=== PATIENT | male | born 1960 | race Caucasian/White ===

== ENCOUNTER 2018-04-22 07:16 | Emergency (ER) | payer SELFPAY ==
[2018-04-22] MEDS ORDERED: HYDROmorphone 0.5 MG/0.5 ML Syringe IVPUSH ONE (07:53)
[2018-04-22 08:29] LABS: CHLORIDE,CL 99 mmol/L (101-111); SODIUM,NA 135 mmol/L (135-145)
--- NOTE | 2018-04-22 09:21 | EDM.PDOC ---
ED HPI GENERAL MEDICAL PROBLEM - General Chief Complaint: Back Pain or Injury Stated Complaint: [id number] FELL OFF LADDER WED Time Seen by Provider: 04/22/18 07:25 Source of Information: Reports: Patient History Limitations: Reports: No Limitations - History of Present Illness INITIAL COMMENTS - FREE TEXT/NARRATIVE: This 58 yo male patient reports to the ED with lower back and hip pain. The patient reports that he fell off a ladder from 10-15 feet. When he landed on the ground, he first landed on his feet, but fell back on the ladder. The patient reports that he had his tool belt on and a drill in the back of the belt at the time. The patient reports he has been attempting to control his symptoms with heat, ice and Aleve, but has not been able to improve his symptoms. 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 [No Known Home Meds] 04/22/18 [History] Past Medical History - Past Health History Medical/Surgical History: Denies Medical/Surgical History Social & Family History - Tobacco Use Smoking Status *Q: Current Every Day Smoker Years of Tobacco use: 20 Packs/Tins Daily: 1 ED ROS GENERAL - Review of Systems Review Of Systems: ROS reveals no pertinent complaints other than HPI. ED EXAM,LOWER BACK PAIN/INJURY - Physical Exam Exam: See Below Exam Limited By: No Limitations General Appearance: Alert, WD/WN, Moderate Distress Eye Exam: Bilateral Eye: EOMI, Normal Inspection, PERRL Ears: Normal External Exam, Normal Canal, Hearing Grossly Normal, Normal TMs Nose: Normal Inspection, Normal Mucosa, No Blood Throat/Mouth: Normal Inspection, Normal Lips, Normal Teeth, Normal Gums, Normal Oropharynx, Normal Voice, No Airway Compromise Head: Atraumatic, Normocephalic Neck: Normal Inspection, Supple, Non-Tender, Full Range of Motion Respiratory/Chest: No Respiratory Distress, Lungs Clear, Normal Breath Sounds, No Accessory Muscle Use, Chest Non-Tender Cardiovascular: Normal Peripheral Pulses, Regular Rate, Rhythm, No Edema, No Gallop, No JVD, No Murmur, No Rub GI/Abdominal: Normal Bowel Sounds, Soft, Non-Tender, No Organomegaly, No Distention, No Abnormal Bruit, No Mass (Male) Exam: Deferred Rectal (Males) Exam: Deferred Back Exam: Muscle Spasm, Paraspinal Tenderness, Vertebral Tenderness Extremities: Normal Inspection, Normal Range of Motion, Non-Tender, No Pedal Edema, Normal Capillary Refill Neurological: Alert, Normal Mood/Affect, Normal Dorsiflexion, CN II-XII Intact, Normal Plantar Flexion, Normal Gait, Normal Reflexes, No Motor/Sensory Deficits , Oriented x 3 Psychiatric: Normal Affect, Normal Mood Skin Exam: Warm, Dry, Intact, Normal Color, No Rash Lymphatic: No Adenopathy Course - Vital Signs Last Recorded V/S: Last Vital Signs Temp 36.2 C 04/22/18 07:18 Pulse 81 04/22/18 07:18 Resp 18 04/22/18 07:18 BP 174/95 H 04/22/18 07:18 Pulse Ox 98 04/22/18 07:18 - Orders/Labs/Meds Orders: Active Orders 24 hr Category Date Time Status Lumbar Spine wo Cont [CT] Urgent Exams 04/22/18 07:54 Ordered Pelvis wo Cont [CT] Urgent Exams 04/22/18 07:54 Ordered Labs: Laboratory Tests 04/22/18 04/22/18 Range/Units 08:02 08:02 WBC 10.4 H (5.0-10.0) 10^3/uL RBC 5.09 (4.6-6.2) 10^6/uL Hgb 16.6 (14.0-18.0) g/dL Hct 46.9 (40.0-54.0) % MCV 92.1 (80-100) fL MCH 32.6 (27.0-34.0) pg MCHC 35.4 H (33.0-35.0) g/dL Plt Count 247 (150-450) 10^3/uL Neut % (Auto) 66.7 (42.2-75.2) % Lymph % (Auto) 24.9 (20.5-50.1) % Hopkins % (Auto) 5.7 (2-8) % Eos % (Auto) 1.9 (1.0-3.0) % Baso % (Auto) 0.8 (0.0-1.0) % Sodium 135 (135-145) mmol/L Potassium 4.0 (3.6-5.0) mmol/L Chloride 99 L (101-111) mmol/L Carbon Dioxide 28.0 (21.0-31.0) mmol/L Anion Gap 12.0 BUN 8 (7-18) mg/dL Creatinine 0.9 (0.6-1.3) mg/dL Est Cr Clr Drug Dosing 87.88 mL/min Estimated GFR (MDRD) > 60 BUN/Creatinine Ratio 8.88 Glucose 115 H (74-105) mg/dL Calcium 8.4 (8.4-10.2) mg/dl Total Bilirubin 0.6 (0.2-1.0) mg/dL AST 23 (10-42) IU/L ALT 17 (10-60) IU/L Alkaline Phosphatase 87 (42-121) IU/L Total Protein 6.9 (6.7-8.2) g/dl Albumin 4.1 (3.2-5.5) g/dl Globulin 2.8 Albumin/Globulin Ratio 1.46 Meds: Medications Discontinued Medications Generic Name Dose Route Start Last Admin Trade Name Adriaq PRN Reason Stop Dose Admin Hydromorphone HCl 0.5 mg 04/22/18 07:53 04/22/18 08:00 Dilaudid IVPUSH 04/22/18 07:54 0.5 mg ONETIME ONE Administration Departure - Departure Time of Disposition: 09:18 Disposition: Home, Self-Care 01 Condition: Fair Clinical Impression: Low back pain at multiple sites - Discharge Information *PRESCRIPTION DRUG MONITORING PROGRAM REVIEWED*: Yes *COPY OF PRESCRIPTION DRUG MONITORING REPORT IN PATIENT NICHOLE: No Instructions: Back Pain, Adult, [id number] Forms: ED Department Discharge Care Plan Goals: The patient was advised of the examination, lab and CT results during the visit. The patient was given an IV dose of Dilaudid while in the ED. The patient was discharged with a script for Toradol (10 mg) #20 to take 1 by mouth every 6 hours, Flexeril (10 mg) #20 to take 1 by mouth at bedtime as needed and Runge (10 /325) #20 to take 1 by mouth every 6 hours as needed for pain. If the patient has any additional symptoms or concerns, the patient should follow-up with his primary care facility or return to the emergency department. - My Orders Last 24 Hours: My Active Orders 04/22/18 07:54 Lumbar Spine wo Cont [CT] Urgent Pelvis wo Cont [CT] Urgent - Assessment/Plan Last 24 Hours: My Active Orders 04/22/18 07:54 Lumbar Spine wo Cont [CT] Urgent Pelvis wo Cont [CT] Urgent
--- NOTE | 2018-04-22 10:40 | CT ---
CLINICAL HISTORY: 58-year-old male injured 15 foot fall off of ladder (5 days ago) when he landed on his feet but fell backward onto "drill". SCAN TECHNIQUE: Volume acquisition of data from an emergency unenhanced CT scan of the lumbosacral sp ine obtained with the patient was lying supine on the Siemens multislice scanner [place], [place]. All data archived in the PACS system for storage, reformatting axial/sag ittal/coronal planes and study. No old films immediately available for comparison. INTERPRETATION: 1. Relative decreased vertical height (compression) L1 vertebral body with hypertrophic marginal spur , i.e., fracture but the age of this compression fracture is indeterminate. 2. Hypertrophic marginal spondylosis at nearly all other levels of the lumbar spine. 3. No sign of pathologic skeletal lesion, other fracture or spondylolisthesis lumbar spine. 4. No sacral fracture. Symmetric spacing normal-appearing SI joints. 5. Calcifications outlining normal caliber aortoiliac vessels, i.e., no aneurysm or dissection. Symme tric normal silhouettes psoas. CONCLUSION: L1 compression fracture (age indeterminate). Hypertrophic spondylosis involving the entire lumbar spine. No sign of other lumbosacral fracture or spondylolisthesis.
--- NOTE | 2018-04-22 10:42 | CT ---
CLINICAL HISTORY: 58-year-old male with low back pain associated with fall (5 days ago) 15 feet off o f ladder, landing on his feet but then falling over backwards. "Indeterminate abnormality L1 vertebra l body and generalized spondylosis" CT scan lumbar spine. SCAN TECHNIQUE: Volume acquisition of data from an emergency unenhanced CT scan of the lumbosacral ju ncture, pelvis and both hips obtained while the patient was lying supine on the Siemens multislice [place], [place]. All data archived in the PACS system for [employer], reformatting axial/sagittal/coronal planes and study. INTERPRETATION: 1. Atheromatous calcifications normal caliber distal abdominal aorta and major common iliac artery br anches. 2. Symmetric normal iliopsoas musculature and no fractures bony pelvis or either hip. No hip dislocat ion. 3. Hypertrophic marginal spondylosis and facet sclerosis from the lumbosacral juncture. No abnormal d isc space narrowing. 4. Symmetric spacing normal-appearing SI and hip joints. Pubic symphysis intact. 5. Symmetrically distended normal appearing urinary bladder. No pelvic hematomas. 6. No foreign bodies. CONCLUSION: No pelvic fractures.
== END 2018-04-22 09:43 | disposition home or self-care (01) ==
LOC: DL.ED 07:16
DX: M54.5 Low back pain (principal); F17.210 Nicotine dependence, cigarettes, uncomplicated
CPT/HCPCS: 36415; 72131; 72192; 80053; 85025; 96374; 99284; J1170

== ENCOUNTER 2019-09-06 09:43 | Emergency (ER) | payer BC, OTHER ==
--- NOTE | 2019-09-06 09:54 | EDM.PDOC ---
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 He states he felt something "let go" at the shoulder/Rt upper arm. Patient reports feeling painful asymmetry to shoulders. Patient states pain 10/10 pain. Onset Date: 09/03/19 Duration: Getting Worse Location: Reports: Upper Extremity, Right Quality: Reports: Ache, Burning Severity: Severe Improves with: Reports: None Worsens with: Reports: None Associated Symptoms: Reports: No Other Symptoms Right Shoulder Pain Score (Numeric/FACES): 10 - Related Data Allergies Allergy/AdvReac Type Severity Reaction Status Date / Time No Known Allergies Allergy Verified 09/06/19 10:00 Home Meds: Home Meds . [No Known Home Meds] 04/22/18 [History] Past Medical History - Past Health History Medical/Surgical History: Denies Medical/Surgical History Social & Family History - Family History Family Medical History: Noncontributory - Tobacco Use Smoking Status *Q: Current Every Day Smoker Tobacco Use Within Last Twelve Months: Cigarettes - Living Situation & Occupation Occupation: Employed Review of Systems - Review of Systems Review Of Systems: Comprehensive ROS is negative, except as noted in HPI. ED EXAM, GENERAL - Physical Exam Exam: See Below Exam Limited By: No Limitations General Appearance: Alert, WD/WN, No Apparent Distress Head: Atraumatic, Normocephalic Neck: Normal Inspection, Supple, Non-Tender, Full Range of Motion Respiratory/Chest: No Respiratory Distress, Lungs Clear, No Accessory Muscle Use , Chest Non-Tender Cardiovascular: Normal Peripheral Pulses, Regular Rate, Rhythm Peripheral Pulses: 3+: Radial (L), Radial (R) Back Exam: Normal Inspection Extremities: Normal Capillary Refill, Arm Pain (From Rt shoulder to Rt elbow with a soft tissue bulge consistent with a biceps tendon rupture), Limited Range of Motion (Rt shoulder and elbow due to pain) Neurological: Alert, Oriented, CN II-XII Intact, Normal Cognition, Normal Gait, No Motor/Sensory Deficits Psychiatric: Normal Affect, Normal Mood Skin Exam: Warm, Dry, Intact, Normal Color, No Rash Course - Vital Signs Last Recorded V/S: Last Vital Signs Temp 97 F 09/06/19 09:52 Pulse 72 09/06/19 09:52 Resp 20 09/06/19 09:52 BP 163/97 H 09/06/19 09:52 Pulse Ox 98 09/06/19 09:52 - Orders/Labs/Meds Orders: Active Orders 24 hr Category Date Time Status DME for Discharge [COMM] Routine Oth 09/06/19 10:27 Ordered Meds: Medications Discontinued Medications Generic Name Dose Route Start Last Admin Trade Name Freq PRN Reason Stop Dose Admin Hydrocodone Bitart/Acetaminophen 1 tab 09/06/19 10:19 09/06/19 10:40 Beattie 325-10 Mg PO 09/06/19 10:20 1 tab ONETIME ONE Administration Lidocaine HCl 15 gm 09/06/19 10:19 09/06/19 10:41 Lidocaine 5% TOP 09/06/19 10:20 15 gm ONETIME ONE Administration - Radiology Interpretation Free Text/Narrative:: XR Rt Shoulder: no acute fractures, see Rad. report. XR Rt Humerus: no acute fractures, see Rad. report. Departure - Departure Time of Disposition: 11:00 Disposition: Home, Self-Care 01 Condition: Good Clinical Impression: Work related injury Rupture of right biceps tendon Qualifiers: Encounter type: initial encounter Qualified Code(s): S46.211A - Strain of muscle, fascia and tendon of other parts of biceps, right arm, initial encounter - Discharge Information *PRESCRIPTION DRUG MONITORING PROGRAM REVIEWED*: No *COPY OF PRESCRIPTION DRUG MONITORING REPORT IN PATIENT NICHOLE: No Instructions: Biceps Tendon Disruption (Proximal) Forms: ED Department Discharge Additional Instructions: Rx: Beattie (Hydrocodone) 5mg/325mg *Do not drive while under the influence of this medication. Rx: Naprosyn 500mg *Take with food/meals. May use over the counter Lidocaine Cream/Ointment, or roll-on (follow directions on label for dosing and precautions). Use sling for comfort, but remove sling every few hours to maintain range of motion of the right shoulder and elbow. Attempt to quit smoking for quicker healing and inflammatory pain reduction. Follow up with [facility] in the next 1 to 2 weeks. Call to schedule an appointment. Sepsis Event Note - Focused Exam Vital Signs: Vital Signs Temp Pulse Resp BP Pulse Ox 09/06/19 09:52 97 F 72 20 163/97 H 98 Date Exam was Performed: 09/06/19 Time Exam was Performed: 10:59 - My Orders Last 24 Hours: My Active Orders 09/06/19 10:27 DME for Discharge [COMM] Routine - Assessment/Plan Last 24 Hours: My Active Orders 09/06/19 10:27 DME for Discharge [COMM] Routine
[2019-09-06] MEDS ORDERED: Acetaminophen/HYDROcodone 325-10 MG Tab PO ONE (10:19)
[2019-09-06] MEDS ORDERED: Lidocaine 5% Oint 35.44 GM Tube TOP ONE (10:19)
== END 2019-09-06 11:28 | disposition home or self-care (01) ==
LOC: DL.ED 09:43
DX: S46.211A Strain of muscle, fascia and tendon of other parts of biceps, right arm, initial encounter (principal); F17.210 Nicotine dependence, cigarettes, uncomplicated; W22.8XXA Striking against or struck by other objects, initial encounter; Y99.0 Civilian activity done for income or pay
CPT/HCPCS: 73030; 73060; 99283; A9270

== ENCOUNTER 2019-10-07 14:42 | Emergency (ER) | payer BC ==
[2019-10-07] MEDS ORDERED: Lidocaine 5% Oint 35.44 GM Tube TOP ONE (15:49)
--- NOTE | 2019-10-07 15:56 | EDM.PDOC ---
ED HPI GENERAL MEDICAL PROBLEM - General Chief Complaint: Upper Extremity Injury/Pain Stated Complaint: LEFT AND RT ARM PAIN Time Seen by Provider: 10/07/19 15:35 Source of Information: Reports: Patient, Old Records, RN, RN Notes Reviewed History Limitations: Reports: No Limitations - History of Present Illness INITIAL COMMENTS - FREE TEXT/NARRATIVE: Pt presents to ER with c/o left arm pain worsening for 1 month. Pt denies injury to the left upper extremity, but has been using the left arm much more since he ruptured the right biceps tendon one month ago. Onset: Gradual Duration: Week(s): (4), Constant, Getting Worse Location: Reports: Upper Extremity, Left Quality: Reports: Ache Severity: Moderate Improves with: Reports: None Worsens with: Reports: Movement Associated Symptoms: Reports: No Other Symptoms Bilateral Arm Pain Score (Numeric/FACES): 8 - Related Data Allergies Allergy/AdvReac Type Severity Reaction Status Date / Time No Known Allergies Allergy Verified 10/07/19 15:23 Home Meds: Home Meds . [No Known Home Meds] 04/22/18 [History] Past Medical History - Past Health History Medical/Surgical History: Denies Medical/Surgical History HEENT History: Reports: Impaired Vision Cardiovascular History: Reports: None Respiratory History: Reports: None Gastrointestinal History: Reports: None Genitourinary History: Reports: None Musculoskeletal History: Reports: None Neurological History: Reports: None Psychiatric History: Reports: None Endocrine/Metabolic History: Reports: None Hematologic History: Reports: None Immunologic History: Reports: None Oncologic (Cancer) History: Reports: None Dermatologic History: Reports: None - Infectious Disease History Infectious Disease History: Reports: None - Past Surgical History Head Surgeries/Procedures: Reports: None HEENT Surgical History: Reports: None Cardiovascular Surgical History: Reports: None Respiratory Surgical History: Reports: None GI Surgical History: Reports: None Male Surgical History: Reports: None Endocrine Surgical History: Reports: None Neurological Surgical History: Reports: None Musculoskeletal Surgical History: Reports: None Dermatological Surgical History: Reports: None Social & Family History - Family History Family Medical History: Noncontributory - Tobacco Use Smoking Status *Q: Current Every Day Smoker Years of Tobacco use: 30 Packs/Tins Daily: 1 - Caffeine Use Caffeine Use: Reports: Coffee - Recreational Drug Use Recreational Drug Use: No - Living Situation & Occupation Occupation: Employed Review of Systems - Review of Systems Review Of Systems: Comprehensive ROS is negative, except as noted in HPI. ED EXAM, GENERAL - Physical Exam Exam: See Below Exam Limited By: No Limitations General Appearance: Alert, WD/WN, No Apparent Distress Head: Atraumatic, Normocephalic Respiratory/Chest: No Respiratory Distress Peripheral Pulses: 3+: Radial (L), Radial (R) Back Exam: Normal Inspection Extremities: No Pedal Edema, Normal Capillary Refill, Arm Pain (Mild tenderness with otherwise normal exam of left shoulder, left upper extremity including elbow, wrist, hand and fingers.) Neurological: Alert, Oriented, Normal Cognition, Normal Gait, No Motor/Sensory Deficits Psychiatric: Normal Mood Skin Exam: Warm, Dry, Intact, Normal Color, No Rash Course - Vital Signs Last Recorded V/S: Last Vital Signs Temp 98.9 F 10/07/19 15:24 Pulse 72 10/07/19 15:24 Resp 18 10/07/19 15:24 BP 185/135 H 10/07/19 15:24 Pulse Ox 98 10/07/19 15:24 - Orders/Labs/Meds Meds: Medications Discontinued Medications Generic Name Dose Route Start Last Admin Trade Name Freq PRN Reason Stop Dose Admin Lidocaine HCl 15 gm 10/07/19 15:49 Lidocaine 5% TOP 10/07/19 15:50 ONETIME ONE Departure - Departure Time of Disposition: 15:53 Disposition: Home, Self-Care 01 Condition: Good Clinical Impression: Overuse injury, Left arm pain Rupture of right biceps tendon Qualifiers: Encounter type: subsequent encounter Qualified Code(s): S46.211D - Strain of muscle, fascia and tendon of other parts of biceps, right arm, subsequent encounter - Discharge Information *PRESCRIPTION DRUG MONITORING PROGRAM REVIEWED*: No *COPY OF PRESCRIPTION DRUG MONITORING REPORT IN PATIENT NICHOLE: No Instructions: Musculoskeletal Pain Forms: ED Department Discharge Additional Instructions: Rx: Orphenadrine 100mg for musculoskeletal pain. Rx: Naprosyn 500mg *Take with meals. Follow up with orthopedic surgeon as planned. Sepsis Event Note - Evaluation Sepsis Screening Result: No Definite Risk - Focused Exam Vital Signs: Vital Signs Temp Pulse Resp BP Pulse Ox 10/07/19 15:24 98.9 F 72 18 185/135 H 98 Date Exam was Performed: 10/07/19 Time Exam was Performed: 16:00
== END 2019-10-07 16:05 | disposition home or self-care (01) ==
LOC: DL.ED 14:42
DX: S46.211D Strain of muscle, fascia and tendon of other parts of biceps, right arm, subsequent encounter (principal); M70.821 Other soft tissue disorders related to use, overuse and pressure, right upper arm; M79.602 Pain in left arm; F17.210 Nicotine dependence, cigarettes, uncomplicated; X58.XXXD Exposure to other specified factors, subsequent encounter
CPT/HCPCS: 99283; A9270

== ENCOUNTER 2021-03-01 16:54 | Emergency (ER) | payer OTHER, BC ==
--- NOTE | 2021-03-01 17:15 | EDM.PDOC ---
ED HPI GENERAL MEDICAL PROBLEM - General Chief Complaint: Upper Extremity Injury/Pain Stated Complaint: FELL OF THE TRUCK, LANDED ON CHEST AND LEFT ARM Time Seen by Provider: 03/01/21 17:05 Source of Information: Reports: Patient, RN, RN Notes Reviewed History Limitations: Reports: No Limitations - History of Present Illness INITIAL COMMENTS - FREE TEXT/NARRATIVE: Jorge is a 61 y/o male who presents to the ED via personal vehicle with complaints of pain to his bilateral anterior chest and left upper arm following a fall forward onto an open tailgate. The patient reports the injury occurred at approximately 1000 today and his pain has progressively worsened in that time; his left upper arm was pinned between his body and the tailgate for some time. He feels he is unable to take a deep breath or lift either of his upper extremities due to pain. He denies striking his head or loss of consciousness during the event. He denies loss of sensory function to the affected extremity. He has not taken any medication or attempted any supportive cares for the pain. Bilateral Chest Pain Score (Numeric/FACES): 6 - Related Data Allergies Allergy/AdvReac Type Severity Reaction Status Date / Time No Known Allergies Allergy Verified 10/07/19 15:23 Home Meds: Home Meds . [Unable to Verify Home Med List] 03/01/21 [History] Past Medical History - Past Health History Medical/Surgical History: Denies Medical/Surgical History HEENT History: Reports: Impaired Vision Cardiovascular History: Reports: None Respiratory History: Reports: None Gastrointestinal History: Reports: None Genitourinary History: Reports: None Musculoskeletal History: Reports: None Neurological History: Reports: None Psychiatric History: Reports: None Endocrine/Metabolic History: Reports: None Hematologic History: Reports: None Immunologic History: Reports: None Oncologic (Cancer) History: Reports: None Dermatologic History: Reports: None - Infectious Disease History Infectious Disease History: Reports: None - Past Surgical History Head Surgeries/Procedures: Reports: None HEENT Surgical History: Reports: None Cardiovascular Surgical History: Reports: None Respiratory Surgical History: Reports: None GI Surgical History: Reports: None Male Surgical History: Reports: None Endocrine Surgical History: Reports: None Neurological Surgical History: Reports: None Musculoskeletal Surgical History: Reports: None Dermatological Surgical History: Reports: None Social & Family History - Family History Family Medical History: No Pertinent Family History - Caffeine Use Caffeine Use: Reports: Coffee - Living Situation & Occupation Occupation: Employed Review of Systems - Review of Systems Review Of Systems: Comprehensive ROS is negative, except as noted in HPI. ED EXAM, GENERAL - Physical Exam Exam: See Below Exam Limited By: No Limitations General Appearance: Alert, No Apparent Distress Eye Exam: Bilateral Eye: EOMI, Normal Inspection, PERRL (3mm) Ears: Normal External Exam, Hearing Grossly Normal Nose: Normal Inspection, Normal Mucosa, No Blood Throat/Mouth: Normal Inspection, Normal Oropharynx, Normal Voice, No Airway Compromise Head: Atraumatic, Normocephalic Neck: Normal Inspection, Supple, Non-Tender, Full Range of Motion Respiratory/Chest: No Accessory Muscle Use, Decreased Breath Sounds, Wheezing (To bilateral upper lobes), Splinting. No: Chest Non-Tender, Crackles, Rales, Stridor, Retractions Cardiovascular: Normal Peripheral Pulses, Regular Rate, Rhythm, No Edema, No Gallop, No JVD, No Murmur, No Rub Peripheral Pulses: 2+: Radial (L), Radial (R) GI/Abdominal: Normal Bowel Sounds, Soft, No Distention, No Abnormal Bruit, No Mass, Pelvis Stable (Male) Exam: Deferred Rectal (Males) Exam: Deferred Back Exam: Normal Inspection, Full Range of Motion Extremities: Normal Capillary Refill, Arm Pain (To left upper arm), Limited Range of Motion (To bilateral upper arms; Left arm hurts with motion; Right chest hurts with motion of right arm) Neurological: Alert, Oriented, CN II-XII Intact, Normal Cognition, Normal Gait, No Motor/Sensory Deficits Psychiatric: Normal Affect, Normal Mood Skin Exam: Warm, Dry, Intact, Normal Color, No Rash. No: Cyanosis, Ecchymosis, Erythema, Jaundice, Mottled, Pallor, Petechiae Course - Vital Signs Last Recorded V/S: Last Vital Signs Temp 97.8 F 03/01/21 16:58 Pulse 68 03/01/21 16:58 Resp 18 03/01/21 16:58 BP 142/71 H 03/01/21 16:58 Pulse Ox 99 03/01/21 16:58 - Radiology Interpretation Free Text/Narrative:: [facility] Final Radiology Report Call: [phone] assistance Online chat: [email or web address] Name: JORGE SHARMA Age: 61Years M Date: 03/01/2021 SSN: -- : 1960 Study: CR HUMERUS LT Requesting Physician: Kelli Hernández Images: 2 Addl Studies: Provided Clinical History: Fall onto tailgate; Increasing pain; Splinting Contrast: Contrast Medium: Contrast Amount: Contrast Method: CONFIDENTIALITY STATEMENT This report is intended only for use by the referring physician, and only in accordance with law. If you received this in error, call [phone]. Page 1 of 1 PROCEDURE INFORMATION: Exam: XR Left Humerus Exam date and time: 03/01/2021 5:17 PM Age: 61 years old Clinical indication: Injury or trauma; Fall; Sprain or strain; Humerus; Left; Injury date: 03/01/2021; Additional info: Fall onto tailgate; Increasing pain; Splinting TECHNIQUE: Imaging protocol: XR Left humerus. Views: 2 or more views. COMPARISON: No relevant prior studies available. FINDINGS: Bones/joints: Normal. Soft tissues: Normal. IMPRESSION: No acute findings. Thank you for allowing us to participate in the care of your patient. Dictated and Authenticated by: Asim Epps MD 03/01/2021 6:12 PM Central Time ([place] & [place]) [facility] [place] [facility] Final Radiology Report Call: [phone] assistance Online chat: [email or web address] Name: JORGE SHARMA Age: 61Years M Date: 03/01/2021 SSN: -- : 1960 Study: CR RIBS 3V W CHEST BI Requesting Physician: Kelli Hernández Images: 5 Addl Studies: Provided Clinical History: Fall onto tailgate; Increasing pain; Splinting Contrast: Contrast Medium: Contrast Amount: Contrast Method: Page 1 of 2 PROCEDURE INFORMATION: Exam: XR Ribs with PA Chest Exam date and time: 03/01/2021 5:18 PM Age: 61 years old Clinical indication: Injury or trauma; Fall; Rib area, bilateral; Swelling; Injury date: 03/01/2021; Patient HX: Patient has a history of rib fractures and a punctured lung from 20 years ago. Does not remember the side it was on; Additional info: Fall onto tailgate; Increasing pain; Splinting TECHNIQUE: Imaging protocol: XR bilateral ribs with PA chest. Views: 4 views COMPARISON: MR Shoulder wo Cont Rt 12/08/2019 12:49 PM FINDINGS: Lungs: Unremarkable. No consolidation. Pleural spaces: Unremarkable. No pleural effusion. No pneumothorax. Heart/Mediastinum: Unremarkable. No cardiomegaly. Bones/joints: Old rib fractures involving the right 4th, 5th, and 6th ribs. The spine demonstrates moderate degenerative changes. Somewhat linear appearing densities demonstrated adjacent to the right 5th and 6th ribs on 1 projection deep to the inferior scapular, not visualized on the other projections. Unclear if this represents artifact. Clinical correlation to exclude a rib fracture suggested. If further evaluation is needed correlation with CT imaging suggested. IMPRESSION: Somewhat linear appearing densities demonstrated adjacent to the right 5th and 6th ribs on 1 projection deep to the inferior scapular, not visualized on the other projections. Unclear if this represents artifact. Clinical correlation to exclude a rib fracture suggested. If further evaluation is needed correlation with CT imaging suggested. Thank you for allowing us to participate in the care of your patient. Dictated and Authenticated by: Asim Epps MD 03/01/2021 6:16 PM Central Time ([place] & [place]) - Re-Assessments/Exams Free Text/Narrative Re-Assessment/Exam: 03/01/21 Xray of chest and L humerus obtained. Findings of examination and imaging reviewed with patient. Patient denies wanting CT scan for further evaluation of possible acute right rib fractures. Will treat with OTC analgesics and IS. Discussed supportive cares as well as red flag signs and symptoms which would warrant reevaluation reviewed. Patient encouraged to follow up with primary care provider should pain and splinting worsen or not improve in 5-7 days. Patient verbalized understanding and agreement with the plan of care. Departure - Departure Time of Disposition: 18:27 Disposition: Home, Self-Care 01 Condition: Fair Clinical Impression: Shortness of breath Chest wall injury Qualifiers: Encounter type: initial encounter Qualified Code(s): S29.9XXA - Unspecified injury of thorax, initial encounter - Discharge Information *PRESCRIPTION DRUG MONITORING PROGRAM REVIEWED*: Not Applicable *COPY OF PRESCRIPTION DRUG MONITORING REPORT IN PATIENT NICHOLE: Not Applicable Forms: ED Department Discharge Additional Instructions: 1.) Follow up with primary care provider, or return to the emergency department, with worsening or persistent symptoms. 2.) You may take ibuprofen (Advil/Motrin) 400mg every six hours, as pain and swelling persists. You may also take acetaminophen (Tylenol) 650mg every six hours, as pain persists. You may stagger these medications so you are receiving a dose every three hours. 3.) You may apply ice to the affected area, as swelling persists; 20 minutes on every hour. 4.) Use your incentive spirometer 10x every hour, while awake.
--- NOTE | 2021-03-01 18:12 | CR ---
PROCEDURE INFORMATION: Exam: XR Left Humerus Exam date and time: 03/01/2021 5:17 PM Age: 61 years old Clinical indication: Injury or trauma; Fall; Sprain or strain; Humerus; Left; Injury date: 03/01/2021; Additional info: Fall onto tailgate; Increasing pain; Splinting TECHNIQUE: Imaging protocol: XR Left humerus. Views: 2 or more views. COMPARISON: No relevant prior studies available. FINDINGS: Bones/joints: Normal. Soft tissues: Normal. IMPRESSION: No acute findings.
--- NOTE | 2021-03-01 18:16 | CR ---
PROCEDURE INFORMATION: Exam: XR Ribs with PA Chest Exam date and time: 03/01/2021 5:18 PM Age: 61 years old Clinical indication: Injury or trauma; Fall; Rib area, bilateral; Swelling; Injury date: 03/01/2021; Patient HX: Patient has a history of rib fractures and a punctured lung from 20 years ago. Does not remember the side it was on; Additional info: Fall onto tailgate; Increasing pain; Splinting TECHNIQUE: Imaging protocol: XR bilateral ribs with PA chest. Views: 4 views COMPARISON: MR Shoulder wo Cont Rt 12/08/2019 12:49 PM FINDINGS: Lungs: Unremarkable. No consolidation. Pleural spaces: Unremarkable. No pleural effusion. No pneumothorax. Heart/Mediastinum: Unremarkable. No cardiomegaly. Bones/joints: Old rib fractures involving the right 4th, 5th, and 6th ribs. The spine demonstrates moderate degenerative changes. Somewhat linear appearing densities demonstrated adjacent to the right 5th and 6th ribs on 1 projection deep to the inferior scapular, not visualized on the other projections. Unclear if this represents artifact. Clinical correlation to exclude a rib fracture suggested. If further evaluation is needed correlation with CT imaging suggested. IMPRESSION: Somewhat linear appearing densities demonstrated adjacent to the right 5th and 6th ribs on 1 projection deep to the inferior scapular, not visualized on the other projections. Unclear if this represents artifact. Clinical correlation to exclude a rib fracture suggested. If further evaluation is needed correlation with CT imaging suggested.
== END 2021-03-01 18:34 | disposition home or self-care (01) ==
LOC: DL.ED 16:54
DX: S29.9XXA Unspecified injury of thorax, initial encounter (principal); R06.02 Shortness of breath; M79.622 Pain in left upper arm; M79.621 Pain in right upper arm; W17.89XA Other fall from one level to another, initial encounter
CPT/HCPCS: 71111; 73060-LT; 99283; 99283-25